=== PATIENT | male | born 1995 | race Caucasian/White ===

== ENCOUNTER 2020-01-17 18:18 | Emergency (ER) | payer OTHER ==
[~2020-01-17] VITALS: Ht 185.4 cm; Wt 83.2 kg
[2020-01-17 18:25] VITALS: TEMP 99.5
[2020-01-17 19:29] VITALS: BP 122/69; PULSE 75
== END 2020-01-17 19:29 | disposition home or self-care (01) ==
LOC: COL.ER 18:18
DX: S61.211A Laceration without foreign body of left index finger without damage to nail, initial encounter (principal); W26.0XXA Contact with knife, initial encounter; Y92.009 Unspecified place in unspecified non-institutional (private) residence as the place of occurrence of the external cause; Y93.89 Activity, other specified

== ENCOUNTER → 2020-02-28 | Outpatient (CLI) | payer OTHER | LOC: MC.RAD 10:17 | DX: N62 Hypertrophy of breast (principal); Z80.3 Family history of malignant neoplasm of breast ==

== ENCOUNTER 2021-01-07 15:12 | Emergency (ER) | payer OTHER ==
[~2021-01-07] VITALS: Ht 185.4 cm; Wt 100.0 kg
[2021-01-07 15:37] VITALS: TEMP 98.5
[2021-01-07 18:53] VITALS: BP 122/71; PULSE 75
== END 2021-01-07 19:00 | disposition home or self-care (01) ==
LOC: COL.ER 15:12
DX: S30.0XXA Contusion of lower back and pelvis, initial encounter (principal); W06.XXXA Fall from bed, initial encounter; W22.8XXA Striking against or struck by other objects, initial encounter
CPT/HCPCS: J1885; J2360

== ENCOUNTER 2022-08-14 23:07 | Emergency (ER) | payer BC ==
[~2022-08-14] VITALS: Ht 185.4 cm; Wt 100.0 kg
[2022-08-14 23:10] VITALS: TEMP 97.9
[2022-08-14 23:55] LABS: BASO % 0.4 % (0.0-2.0); EOS # 0.1 K/mm3 (0.0-0.7); EOS % 0.7 % (0.0-4.0); GRAN # 4.9 K/mm3 (1.4-6.5); HEMATOCRIT 40.5 % (42.0-52.0); HEMOGLOBIN 15.1 g/dl (13.5-18.0); LYMPH # 1.7 K/mm3 (1.2-3.4); LYMPH % 23.1 % (20.0-51.0); MEAN CELL VOLUME 84 fl (80.0-100.0); MEAN CORPUSCULAR HEMOGLOBIN 31 pg (27-31); MEAN CORPUSCULAR HGB CONC 37 g/dl (33.0-37.0); MEAN PLATELET VOLUME 9.3 fl (7.4-10.4); MONO # 0.5 K/mm3 (0.1-0.6); MONO % 6.7 % (1.7-9.3); PLATELET COUNT 295 K/mm3 (130-400); RED BLOOD COUNT 4.83 M/mm3 (4.20-5.60); REDCELL DISTRIBUTION WIDTH-CV 12.5 % (11.5-14.5)
[2022-08-15 00:13] LABS: ALANINE AMINOTRANSFERASE 36 U/L (0-55); ALBUMIN 4.3 gm/dL (3.5-5.0); ALKALINE PHOSPHATASE 70 U/L (40-150); ANION GAP 11 mmol/L (7-16); AST,SGOT 27 U/L (5-34); BLOOD UREA NITROGEN 11 mg/dL (9-21); C-REACTIVE PROTEIN 0.35 mg/dL (0.00-0.50); CALCIUM 9.9 mg/dL (8.4-10.2); CARBON DIOXIDE 25 mmol/L (22-29); CHLORIDE 104 mmol/L (98-107); CREATININE, serum 0.92 mg/dL (0.72-1.25); GLUCOSE 113 mg/dL (70-99); LIPASE 15 U/L (8-78); POTASSIUM 3.1 mmol/L (3.5-4.5); SODIUM 140 mmol/L (136-145); TOTAL PROTEIN 7.4 gm/dL (6.2-8.1)
[2022-08-15 00:23] LABS: TROPONIN-I < 0.010 ng/mL (0.00-0.033)
[2022-08-15 02:25] VITALS: BP 129/71; PULSE 68
== END 2022-08-15 02:27 | disposition home or self-care (01) ==
LOC: COL.ER 23:07
PROVIDERS: Nurse Practitioner
DX: R10.13 Epigastric pain (principal); Z28.310 Unvaccinated for COVID-19
CPT/HCPCS: J1885; J2060

== ENCOUNTER 2022-10-31 23:24 | Emergency (ER) | payer BC ==
[~2022-10-31] VITALS: Ht 185.4 cm; Wt 100.0 kg
[2022-10-31 23:30] VITALS: TEMP 98.5
[2022-10-31 23:44] LABS: BASO % 0.5 % (0.0-2.0); EOS # 0.1 K/mm3 (0.0-0.7); EOS % 1.7 % (0.0-4.0); GRAN % 52.9 % (42.2-75.2); HEMOGLOBIN 16.3 g/dl (13.5-18.0); LYMPH # 2.7 K/mm3 (1.2-3.4); LYMPH % 35.4 % (20.0-51.0); MEAN CELL VOLUME 87 fl (80.0-100.0); MEAN CORPUSCULAR HEMOGLOBIN 32 pg (27-31); MEAN CORPUSCULAR HGB CONC 37 g/dl (33.0-37.0); MEAN PLATELET VOLUME 9.8 fl (7.4-10.4); MONO # 0.7 K/mm3 (0.1-0.6); MONO % 9.4 % (1.7-9.3); PLATELET COUNT 268 K/mm3 (130-400); RED BLOOD COUNT 5.07 M/mm3 (4.20-5.60); REDCELL DISTRIBUTION WIDTH-CV 12.4 % (11.5-14.5)
[2022-11-01 00:05] LABS: ALANINE AMINOTRANSFERASE 31 U/L (0-55); ALBUMIN 4.4 gm/dL (3.5-5.0); ALKALINE PHOSPHATASE 70 U/L (40-150); ANION GAP 12 mmol/L (7-16); AST,SGOT 22 U/L (5-34); BILIRUBIN,TOTAL 0.9 mg/dL (0.2-1.2); BLOOD UREA NITROGEN 13 mg/dL (9-21); CARBON DIOXIDE 27 mmol/L (22-29); CHLORIDE 105 mmol/L (98-107); CREATININE, serum 0.98 mg/dL (0.72-1.25); GLUCOSE 103 mg/dL (70-99); POTASSIUM 3.7 mmol/L (3.5-4.5); SODIUM 144 mmol/L (136-145); TOTAL PROTEIN 7.6 gm/dL (6.2-8.1)
[2022-11-01 00:10] LABS: TROPONIN-I < 0.010 ng/mL (0.00-0.033)
[2022-11-01 01:26] VITALS: BP 126/82; PULSE 79
[2022-11-01] MEDS ORDERED: DOXYCYCLINE 10100 MG PO (07:15)
== END 2022-11-01 01:28 | disposition home or self-care (01) ==
LOC: COL.ER 23:24
PROVIDERS: Nurse Practitioner Primary Care
DX: R07.2 Precordial pain (principal); Z11.3 Encounter for screening for infections with a predominantly sexual mode of transmission
CPT/HCPCS: J1200; J1885

== ENCOUNTER 2023-08-31 01:32 | Observation (INO) | payer BC ==
[~2023-08-31] VITALS: Ht 188 cm; Wt 104.1 kg
[~2023-08-31 01:32] MED LIST: DOXYCYCLINE 10100 MG PO
[2023-08-31 01:59] LABS: BASO % 0.5 % (0.0-2.0); EOS # 0.2 K/mm3 (0.0-0.7); EOS % 2.2 % (0.0-4.0); GRAN # 3.7 K/mm3 (1.4-6.5); GRAN % 49.3 % (42.2-75.2); HEMATOCRIT 43.7 % (42.0-52.0); HEMOGLOBIN 15.8 g/dl (13.5-18.0); LYMPH # 2.9 K/mm3 (1.2-3.4); LYMPH % 39.1 % (20.0-51.0); MEAN CELL VOLUME 88 fl (80.0-100.0); MEAN CORPUSCULAR HEMOGLOBIN 32 pg (27-31); MEAN CORPUSCULAR HGB CONC 36 g/dl (33.0-37.0); MEAN PLATELET VOLUME 9.2 fl (7.4-10.4); MONO # 0.7 K/mm3 (0.1-0.6); MONO % 8.8 % (1.7-9.3); PLATELET COUNT 296 K/mm3 (130-400); RED BLOOD COUNT 4.99 M/mm3 (4.20-5.60); REDCELL DISTRIBUTION WIDTH-CV 12.6 % (11.5-14.5)
[2023-08-31] MEDS ORDERED: Ketorolac 30 MG/ML VIAL IV ONE (02:15)
[2023-08-31] MEDS ORDERED: Ondansetron 4 MG/2 ML VIAL IV ONE (02:15)
[2023-08-31] MEDS ORDERED: NS 1,000 ML IV ONE (02:15)
[2023-08-31 02:17] LABS: ALANINE AMINOTRANSFERASE 46 U/L (0-55); ALBUMIN 4.1 gm/dL (3.5-5.0); ALKALINE PHOSPHATASE 81 U/L (40-150); ANION GAP 10 mmol/L (7-16); AST,SGOT 26 U/L (5-34); BILIRUBIN,TOTAL 0.7 mg/dL (0.2-1.2); BLOOD UREA NITROGEN 10 mg/dL (9-21); C-REACTIVE PROTEIN 0.26 mg/dL (0.00-0.50); CALCIUM 9.4 mg/dL (8.4-10.2); CARBON DIOXIDE 24 mmol/L (22-29); CHLORIDE 106 mmol/L (98-107); CREATININE, serum 0.88 mg/dL (0.72-1.25); GLUCOSE 106 mg/dL (70-99); LIPASE < 7 U/L (8-78); POTASSIUM 3.5 mmol/L (3.5-4.5); SODIUM 140 mmol/L (136-145); TOTAL PROTEIN 7.2 gm/dL (6.2-8.1)
[2023-08-31 02:40] LABS: COLLECTION METHOD CLEAN CATCH
[2023-08-31 02:43] LABS: URINE APPEARANCE CLEAR (CLEAR/HAZY); URINE BLOOD NEGATIVE (NEGATIVE); URINE COLOR YELLOW (YELLOW); URINE GLUCOSE NEGATIVE (NEGATIVE); URINE KETONE NEGATIVE (NEGATIVE); URINE NITRATE NEGATIVE (NEGATIVE); URINE PROTEIN(semi-quant) NEGATIVE (NEGATIVE)
[2023-08-31] MEDS ORDERED: REVIA 50MG TABL50 MG PO (03:09)
[2023-08-31] MEDS ORDERED: HYDROmorphone 0.5 MG/0.5 ML SYRINGE IV PRN (03:45)
[2023-08-31] MEDS ORDERED: Ondansetron 4 MG/2 ML VIAL IV PRN (03:45)
[2023-08-31] MEDS ORDERED: NS 1,000 ML IV SCH (03:45)
[2023-08-31 04:26] VITALS: BP 147/92; PULSE 75; TEMP 97.8
[2023-08-31 04:29] VITALS: BP_SYST 147
[2023-08-31 07:12] VITALS: BP 146/70; PULSE 99; TEMP 97.8
[2023-08-31 09:05] VITALS: BP_SYST 146
[2023-08-31 11:13] VITALS: BP 130/79; PULSE 75; TEMP 98.2
[2023-08-31 12:45] VITALS: BP_SYST 130
== END 2023-08-31 13:54 | disposition home or self-care (01) ==
LOC: COL.ER 01:32 → SURG 02:46
PROVIDERS: Nurse Practitioner; ADMIT Surgery
DX: R10.11 Right upper quadrant pain (principal)
CPT/HCPCS: G0378; J1885; J2405; J7030